=== PATIENT | female | born 1990 | race Caucasian/White ===

== ENCOUNTER 2021-10-05 09:18 | Inpatient (IN) ==
[2021-10-05 09:51] LABS: Basophils % 0.4 % (0.0-0.8); Eosinophils # 0.1 10*3/uL (0.0-0.87); Eosinophils % 0.9 % (0.00-10.9); Hematocrit 33.7 VOL% (35.7-47.0); Hemoglobin 11.4 GM/DL (12.0-16.0); Immature Granulocytes % 1.2 %; Immature Granulocytes Absolute 0.09 #; Lymphocytes # 1.7 10*3/uL (1.4-4.0); Lymphocytes % 21.7 % (21.3-54.2); Mean Corpuscular HGB Conc 33.8 GM/DL (32-36); Mean Corpuscular Volume 91.6 FL (87-102); Mean Platelet Volume 10.5 FL (9.6-12.0); Monocytes % 7.9 % (1.7-12.7); Neutrophils % 67.9 % (38.7-73.9); Platelet Count 157 T/CUMM (130-400); Red Blood Count 3.68 MC/CUMM (3.8-5.5); Red Cell Distribution Width 13.1 % (9.3-17.3); White Blood Count 7.8 T/CUMM (4-12)
[2021-10-05 09:53] VITALS: BP 130/72
[2021-10-05 10:03] LABS: Bacteria,Urine Occasional /HPF (Few); Glucose,Urine (UA) Negative (Negative); Ketones,Urine Negative (Negative); Nitrite,Urine Negative (Negative); Protein,Urine Negative (Negative); RBC,Urine <1 /HPF (0-4); Squamous Epithelial Cell,Urine Occasional /HPF (0-10); Urine Appearance Clear (Clear); Urine Color Yellow (Yellow)
[2021-10-05 10:04] LABS: Bilirubin,Urine Negative (Negative); Blood, Urine Negative (Negative); Urine Urobilinogen 0.2 eU/dL (<2.0)
[2021-10-05 10:07] LABS: INR 0.9; PT Patient Result 10.1 SECS (10.5-12.0); Partial Thromboplastin Time 21.6 SECS (23.8-32.1)
[2021-10-05 10:19] LABS: Alanine Aminotransferase 17 U/L (13-56); Albumin 2.3 G/DL (3.4-5.0); Alkaline Phosphatase 126 U/L (45-117); Aspartate Amino Transferase 12 U/L (0-37); Bilirubin,Direct < 0.100 MG/DL (0.0-0.20); Bilirubin,Total < 0.39 MG/DL (0.20-1.00); Blood Urea Nitrogen 11 MG/DL (7-18); Calcium 8.9 MG/DL (8.5-10.1); Carbon Dioxide 21 MMOL/L (21-32); Estimated Glom Filtration Rate 128 ML/MIN; Glucose 102 MG/DL (74-106); Osmolality,Calculated 275.5 MOS/KG (273-304); Potassium 3.7 MMOL/L (3.5-5.1); Sodium 139 MMOL/L (136-145); Total Protein 6.6 G/DL (6.4-8.2); Uric Acid 4.7 MG/DL (2.6-6.0)
[2021-10-05] MEDS ORDERED: LACTATED RINGERS 1,000 ML IV ONE (10:59)
[2021-10-05 11:12] LABS: Protein/Creatinine Ratio,Urine 0.2 RATIO
[2021-10-05] MEDS ORDERED: miSOPROStoL 200 MCG TABLET RECTAL PRN (14:32)
[2021-10-05] MEDS ORDERED: BUTORPHANOL 2 MG/ML VIAL IV PRN (14:32)
[2021-10-05] MEDS ORDERED: TRANEXAMIC ACID 1,000 MG in SODIUM CHLORIDE 0.9% 100 ML IV PRN ×2 (14:32→15:00)
[2021-10-05] MEDS ORDERED: METHYLERGONOVINE 0.2 MG/1 ML AMP IM PRN (14:32)
[2021-10-05] MEDS ORDERED: CARBOPROST TROMETHAMINE 250 MCG/ML AMP IM PRN (14:32)
[2021-10-05] MEDS ORDERED: OXYTOCIN/LR 20 UNIT/1,000 ML BAG IV ONE (14:32)
[2021-10-05] MEDS: LACTATED RINGERS 1,000 ML IV SCH (20:00)
[2021-10-05] MEDS: ZALEPLON 5 MG CAPSULE PO SCH (21:15)
[2021-10-05] MEDS: LABETALOL 100 MG TABLET PO SCH (21:24)
[2021-10-06] MEDS: LACTATED RINGERS 1,000 ML IV SCH (00:42)
[2021-10-06] MEDS ORDERED: AMPICILLIN INJ 2,000 MG in SODIUM CHLORIDE 0.9% 100 ML IV ONE (05:21)
[2021-10-06] MEDS: ONDANSETRON 4 MG/2 ML VIAL IV PRN (07:50)
[2021-10-06] MEDS: MEPERIDINE 50 MG/1 ML VIAL IV PRN ×2 (07:57→10:44)
[2021-10-06] MEDS: LABETALOL 100 MG TABLET PO SCH ×2 (08:42→21:29)
[2021-10-06] MEDS: AMPICILLIN INJ 1,000 MG in SODIUM CHLORIDE 0.9% 100 ML IV SCH ×4 (09:31→21:29)
[2021-10-06] MEDS: ZALEPLON 5 MG CAPSULE PO SCH (21:29)
[2021-10-07] MEDS: AMPICILLIN INJ 1,000 MG in SODIUM CHLORIDE 0.9% 100 ML IV SCH ×5 (04:10→20:49)
[2021-10-07] MEDS: OXYTOCIN/LR 20 UNIT/1,000 ML BAG IV SCH (04:14)
[2021-10-07] MEDS: LACTATED RINGERS 1,000 ML IV SCH (08:43)
[2021-10-07] MEDS: LABETALOL 100 MG TABLET PO SCH ×2 (08:43→21:10)
[2021-10-07] MEDS: ONDANSETRON 4 MG/2 ML VIAL IV PRN (10:42)
[2021-10-07] MEDS: MEPERIDINE 50 MG/1 ML VIAL IV PRN (10:42)
[2021-10-07] MEDS ORDERED: ACETAMINOPHEN 500 MG TABLET PO ONE (16:37)
[2021-10-07] MEDS: ZALEPLON 5 MG CAPSULE PO SCH (21:10)
[2021-10-08] MEDS: AMPICILLIN INJ 1,000 MG in SODIUM CHLORIDE 0.9% 100 ML IV SCH (04:26)
[2021-10-08] MEDS: LACTATED RINGERS 1,000 ML IV SCH (06:06)
[2021-10-08] MEDS: OXYTOCIN/LR 20 UNIT/1,000 ML BAG IV SCH (06:07)
[2021-10-08 07:07] LABS: Uric Acid 5.3 MG/DL (2.6-6.0)
[2021-10-08 07:35] LABS: Basophils % 0.3 % (0.0-0.8); Eosinophils # 0.1 10*3/uL (0.0-0.87); Eosinophils % 1.7 % (0.00-10.9); Hematocrit 33.3 VOL% (35.7-47.0); Hemoglobin 11.1 GM/DL (12.0-16.0); Immature Granulocytes % 0.9 %; Immature Granulocytes Absolute 0.06 #; Lymphocytes # 1.7 10*3/uL (1.4-4.0); Lymphocytes % 24.1 % (21.3-54.2); Mean Corpuscular HGB Conc 33.3 GM/DL (32-36); Mean Corpuscular Volume 92.5 FL (87-102); Monocytes % 8.5 % (1.7-12.7); Neutrophils % 64.5 % (38.7-73.9); Platelet Count 168 T/CUMM (130-400); White Blood Count 6.9 T/CUMM (4-12)
[2021-10-08] MEDS: LABETALOL 100 MG TABLET PO SCH (09:15)
[2021-10-08 09:23] LABS: Protein/Creatinine Ratio,Urine 0.4 RATIO
== END 2021-10-08 11:21 | disposition home or self-care (01) | DRG 833 ==
LOC: N.LDOUT 09:18 → N.LD 09:19
PROVIDERS: ADMIT Obstetrics & Gynecology; ATTEND Obstetrics & Gynecology

== ENCOUNTER 2021-11-08 21:18 | Inpatient (IN) ==
[2021-11-08 22:07] LABS: Bacteria,Urine Moderate /HPF (Few); Squamous Epithelial Cell,Urine Occasional /HPF (0-10)
[2021-11-08 22:08] LABS: Bilirubin,Urine Negative (Negative); Blood, Urine Negative (Negative); Glucose,Urine (UA) Negative (Negative); Ketones,Urine Negative (Negative); Nitrite,Urine Negative (Negative); Protein,Urine Trace mg/dL (Negative); Urine Appearance Clear (Clear); Urine Color Light Yellow (Yellow); Urine Specific Gravity 1.015 (1.001-1.035); Urine Urobilinogen 0.2 eU/dL (<2.0)
[2021-11-08 23:26] LABS: Basophils % 0.5 % (0.0-0.8); Eosinophils # 0.1 10*3/uL (0.0-0.87); Eosinophils % 1.5 % (0.00-10.9); Hematocrit 30.7 VOL% (35.7-47.0); Hemoglobin 10.4 GM/DL (12.0-16.0); Immature Granulocytes % 1.1 %; Immature Granulocytes Absolute 0.09 #; Lymphocytes # 2.1 10*3/uL (1.4-4.0); Lymphocytes % 25.8 % (21.3-54.2); Mean Corpuscular HGB Conc 33.9 GM/DL (32-36); Mean Platelet Volume 10.6 FL (9.6-12.0); Monocytes # 0.8 10*3/uL (0.11-0.8); Monocytes % 9.3 % (1.7-12.7); Neutrophils % 61.8 % (38.7-73.9); Platelet Count 131 T/CUMM (130-400); Red Blood Count 3.41 MC/CUMM (3.8-5.5); Red Cell Distribution Width 14.1 % (9.3-17.3); White Blood Count 8.1 T/CUMM (4-12)
[2021-11-08 23:38] LABS: INR 0.9; PT Patient Result 9.8 SECS (10.5-12.0); Partial Thromboplastin Time 29.2 SECS (23.8-32.1)
[2021-11-09 00:20] LABS: Alanine Aminotransferase 16 U/L (13-56); Albumin 2.3 G/DL (3.4-5.0); Alkaline Phosphatase 126 U/L (45-117); Aspartate Amino Transferase 17 U/L (0-37); Bilirubin,Total < 0.39 MG/DL (0.20-1.00); Blood Urea Nitrogen 17 MG/DL (7-18); Carbon Dioxide 20 MMOL/L (21-32); Chloride 109 MMOL/L (98-107); Glucose 87 MG/DL (74-106); Potassium 3.9 MMOL/L (3.5-5.1); Sodium 136 MMOL/L (136-145); Total Protein 6.2 G/DL (6.4-8.2); Uric Acid 6.2 MG/DL (2.6-6.0)
[2021-11-09 02:14] LABS: Protein/Creatinine Ratio,Urine 0.7 RATIO
[2021-11-09] MEDS ORDERED: TRANEXAMIC ACID 1,000 MG in SODIUM CHLORIDE 0.9% 100 ML IV PRN (08:44)
[2021-11-09] MEDS ORDERED: CITRIC ACID/SODIUM CITRATE 30 ML UDCUP PO ONE (08:44)
[2021-11-09] MEDS ORDERED: FAMOTIDINE 20 MG/2 ML VIAL IV ONE (08:44)
[2021-11-09] MEDS ORDERED: ceFAZolin 2,000 MG/50 ML DUPLEX IV ONE (08:44)
[2021-11-09] MEDS ORDERED: miSOPROStoL 200 MCG TABLET RECTAL PRN (08:44)
[2021-11-09] MEDS ORDERED: OXYTOCIN/LR 20 UNIT/1,000 ML BAG IV ONE ×3 (08:44→12:29)
[2021-11-09] MEDS ORDERED: CARBOPROST TROMETHAMINE 250 MCG/ML AMP IM PRN (08:44)
[2021-11-09] MEDS ORDERED: LABETALOL 200 MG TABLET PO ONE (08:50)
[2021-11-09] MEDS ORDERED: LACTATED RINGERS 1,000 ML IV SCH ×3 (09:00→13:00)
[2021-11-09] MEDS ORDERED: miSOPROStoL 200 MCG TABLET ONE (09:02)
[2021-11-09] MEDS ORDERED: SODIUM CHLORIDE 0.9% 0 ML IV ONE (09:02)
[2021-11-09] MEDS ORDERED: CARBOPROST TROMETHAMINE 250 MCG/ML AMP IM ONE (09:02)
[2021-11-09] MEDS ORDERED: TRANEXAMIC ACID 1,000 MG/10 ML VIAL ONE (09:02)
[2021-11-09] MEDS ORDERED: buprenorphine HCL 0.3 MG/ML VIAL ONE (11:02)
[2021-11-09] MEDS ORDERED: ONDANSETRON 4 MG/2 ML VIAL ONE (11:02)
[2021-11-09] MEDS ORDERED: BUPIVACAINE SPINAL 0.75% 2 ML AMP SPINAL ONE (11:04)
[2021-11-09] MEDS ORDERED: PHENYLEPHRINE 1 MG/10 ML SYRINGE IV ONE (11:04)
[2021-11-09] MEDS ORDERED: PHENYLEPHRINE 10 MG/1 ML VIAL IV ONE (11:52)
[2021-11-09] MEDS ORDERED: ACETAMINOPHEN INJ 1,000 MG/100 ML VIAL IV ONE (12:12)
[2021-11-09 12:17] LABS: Cord Venous Blood HCO3 21.1 MMOL/L; Cord Venous Blood PCO2 49.3 MMHG; Cord Venous Blood PO2 19.1
[2021-11-09 12:19] LABS: Bacteria,Urine Occasional /HPF (Few); Bilirubin,Urine Negative (Negative); Blood, Urine Negative (Negative); Glucose,Urine (UA) Negative (Negative); Ketones,Urine Negative (Negative); Mucus,Urine Occasional /LPF (Occasional); Nitrite,Urine Negative (Negative); Protein,Urine Trace mg/dL (Negative); RBC,Urine 2 /HPF (0-4); Squamous Epithelial Cell,Urine Occasional /HPF (0-10); Urine Appearance Clear (Clear); Urine Color Yellow (Yellow); Urine Urobilinogen 0.2 eU/dL (<2.0)
[2021-11-09] MEDS ORDERED: ONDANSETRON 4 MG/2 ML VIAL IV PRN (12:29)
[2021-11-09] MEDS ORDERED: MAGNESIUM HYDROXIDE SUSP 30 ML UDCUP PO PRN (12:29)
[2021-11-09] MEDS ORDERED: ACETAMINOPHEN 325 MG TABLET PO PRN ×2 (12:29→12:36)
[2021-11-09] MEDS ORDERED: RHO(D) IMMUNE GLOBULIN 300 MCG SYRINGE IM ONE (12:29)
[2021-11-09] MEDS ORDERED: SIMETHICONE CHEW 80 MG TABLET PO PRN ×2 (12:29→12:36)
[2021-11-09] MEDS ORDERED: oxyCODONE/ACETAMINOPHEN 5-325 MG TABLET PO PRN (12:31)
[2021-11-09] MEDS ORDERED: IBUPROFEN 800 MG TABLET PO PRN (12:36)
[2021-11-09] MEDS ORDERED: HYDROmorphone 1 MG/1 ML SYRINGE IV PRN (16:17)
[2021-11-09] MEDS: oxyCODONE/ACETAMINOPHEN 5-325 MG TABLET PO PRN (19:47)
[2021-11-09] MEDS: KETOROLAC 30 MG/1 ML VIAL IV PRN (19:48)
[2021-11-09] MEDS ORDERED: DOCUSATE SODIUM 100 MG CAPSULE PO SCH (21:00)
[2021-11-09] MEDS: DOCUSATE SODIUM 100 MG CAPSULE PO SCH (21:25)
[2021-11-09] MEDS: LABETALOL 200 MG TABLET PO SCH (21:25)
[2021-11-10] MEDS: oxyCODONE/ACETAMINOPHEN 5-325 MG TABLET PO PRN ×4 (02:03→18:28)
[2021-11-10] MEDS: KETOROLAC 30 MG/1 ML VIAL IV PRN (02:11)
[2021-11-10 05:26] LABS: Basophils % 0.2 % (0.0-0.8); Eosinophils # 0.1 10*3/uL (0.0-0.87); Hematocrit 25.8 VOL% (35.7-47.0); Hemoglobin 8.6 GM/DL (12.0-16.0); Immature Granulocytes % 0.7 %; Immature Granulocytes Absolute 0.06 #; Lymphocytes # 1.2 10*3/uL (1.4-4.0); Lymphocytes % 14.4 % (21.3-54.2); Mean Corpuscular HGB Conc 33.3 GM/DL (32-36); Mean Corpuscular Volume 91.2 FL (87-102); Mean Platelet Volume 10.5 FL (9.6-12.0); Monocytes # 0.5 10*3/uL (0.11-0.8); Monocytes % 6.4 % (1.7-12.7); Neutrophils % 77.3 % (38.7-73.9); Platelet Count 111 T/CUMM (130-400); Red Blood Count 2.83 MC/CUMM (3.8-5.5); Red Cell Distribution Width 14.1 % (9.3-17.3); White Blood Count 8.4 T/CUMM (4-12)
[2021-11-10] MEDS: IBUPROFEN 800 MG TABLET PO PRN ×2 (07:27→20:24)
[2021-11-10] MEDS ORDERED: HydrOXYzine PAMOATE 25 MG CAPSULE PO PRN (08:21)
[2021-11-10] MEDS: SERTRALINE 50 MG TABLET PO SCH (08:52)
[2021-11-10] MEDS: DOCUSATE SODIUM 100 MG CAPSULE PO SCH ×2 (08:52→21:40)
[2021-11-10] MEDS: MULTIVITAMIN (PRENATAL) TABLET PO SCH (08:52)
[2021-11-10] MEDS: LABETALOL 200 MG TABLET PO SCH ×2 (08:52→21:40)
[2021-11-10] MEDS: FERROUS SULFATE 325 MG TABLET PO SCH ×2 (08:52→21:39)
[2021-11-10] MEDS ORDERED: FERROUS SULFATE 325 MG TABLET PO SCH (09:00)
[2021-11-10] MEDS ORDERED: MULTIVITAMIN (PRENATAL) TABLET PO SCH (09:00)
[2021-11-10] MEDS ORDERED: busPIRone 5 MG TABLET PO SCH (09:00)
[2021-11-10] MEDS ORDERED: ONDANSETRON 4 MG TABLET PO PRN (18:16)
[2021-11-10] MEDS: MAGNESIUM HYDROXIDE SUSP 30 ML UDCUP PO PRN (21:40)
[2021-11-11] MEDS: oxyCODONE/ACETAMINOPHEN 5-325 MG TABLET PO PRN ×3 (00:15→12:47)
[2021-11-11] MEDS: IBUPROFEN 800 MG TABLET PO PRN (04:57)
[2021-11-11 07:22] VITALS: BP 132/74
[2021-11-11] MEDS: DOCUSATE SODIUM 100 MG CAPSULE PO SCH (09:28)
[2021-11-11] MEDS: LABETALOL 200 MG TABLET PO SCH (09:28)
[2021-11-11] MEDS: MULTIVITAMIN (PRENATAL) TABLET PO SCH (09:28)
[2021-11-11] MEDS: FERROUS SULFATE 325 MG TABLET PO SCH (09:29)
[2021-11-11] MEDS: MAGNESIUM HYDROXIDE SUSP 30 ML UDCUP PO PRN (09:29)
[2021-11-11] MEDS: SERTRALINE 50 MG TABLET PO SCH (09:29)
== END 2021-11-11 14:15 | disposition home or self-care (01) | DRG 788 ==
LOC: N.LDOUT 21:18 → N.LD 21:21 → N.OB 11-09 17:15
PROVIDERS: ADMIT Obstetrics & Gynecology; ATTEND Obstetrics & Gynecology
PROC: LDCSECT (ICD-10-PCS; 2021-11-09 11:30)